=== PATIENT | female | born 1990 | race Two or more races ===

== ENCOUNTER 2020-09-18 23:51 | Emergency (ER) | payer MEDICAID ==
[~2020-09-18] VITALS: Ht 167.6 cm; Wt 85.7 kg
[2020-09-19 01:02] LABS: Urine Bacteria FEW /hpf (None Seen); Urine Blood 3+ /uL (Negative); Urine Specific Gravity 1.009 (1.001-1.035); Urine WBC 749 /hpf (0 - 5); Urine WBC Clumps PRESENT /hpf (None Seen)
[2020-09-19 05:05] VITALS: BP 146/93
== END 2020-09-19 05:12 | disposition home or self-care (01) ==
LOC: ER 23:54
DX: N30.00 Acute cystitis without hematuria (principal); R35.0 Frequency of micturition; R39.15 Urgency of urination
CPT/HCPCS: 81001